=== PATIENT | male | born 1935 | race Hispanic/Latino ===

== ENCOUNTER → 2022-09-21 | Outpatient (CLI) | payer OTHER ==
[~2022-09-21] MED LIST: IOHEXOL 350 MG/ML 100ML INFUS..BTL IV ONE
== END | disposition home or self-care (01) ==
LOC: RAH 10:42
PROVIDERS: ATTEND Family Medicine
DX: Q44.6 Cystic disease of liver (principal); K44.9 Diaphragmatic hernia without obstruction or gangrene; K76.89 Other specified diseases of liver
CPT/HCPCS: 74170; Q9967

== ENCOUNTER → 2023-12-05 | Outpatient (CLI) | payer OTHER | END | disposition home or self-care (01) | LOC: RAH 09:55 | PROVIDERS: ATTEND Family Medicine | DX: M25.562 Pain in left knee (principal) | CPT/HCPCS: 73562 ==